=== PATIENT | female | born 1985 | race Caucasian/White ===

== ENCOUNTER 2019-02-28 11:45 | Emergency (ER) | payer SELFPAY ==
[~2019-02-28] VITALS: Ht 165.1 cm; Wt 58.1 kg
--- NOTE | 2019-02-28 12:25 | NUR ---
fever, sore throat x 5 days, took teraflu 1hr [employer]. Kept comfortable, will continue to monitor accordingly.
[2019-02-28] MEDS ORDERED: predniSONE 20 MG TABLET PO ONE (14:00)
[2019-02-28] MEDS ORDERED: IPRATROPIUM NEB FS 0.5 MG/2.5 ML AMPUL.NEB NEB ONE (14:00)
[2019-02-28] MEDS ORDERED: ALBUTEROL FS 2.5 MG/3 ML VIAL.NEB NEB ONE (14:00)
[2019-02-28] MEDS ORDERED: predniSONE 20 MG TABLET ONE (14:01)
--- NOTE | 2019-02-28 14:05 | NUR ---
RT AT BEDSIDE FOR BREATHING TREATMENT.
--- NOTE | 2019-02-28 14:18 | NUR ---
Patient discharged to home in stable condition. Written and verbal after care instructions given. Patient verbalizes understanding of instruction.
--- NOTE | 2019-02-28 14:19 | NUR ---
STILL WAITING FOR BREATHING TREATMENT TO BE COMPLETED.
[2019-02-28 14:37] VITALS: BP 129/81
--- NOTE | 2019-02-28 14:37 | NUR ---
Patient discharged to home in stable condition. Written and verbal after care instructions given. Patient verbalizes understanding of instruction.
== END 2019-02-28 14:37 | disposition home or self-care (01) ==
LOC: ER 11:50
DX: J06.9 Acute upper respiratory infection, unspecified (principal); R51 Headache
CPT/HCPCS: 71045; 94640; 99283; J7512

== ENCOUNTER 2023-02-12 15:40 | Emergency (ER) | payer MEDICAID, OTHER ==
[~2023-02-12] VITALS: Ht 162.6 cm; Wt 59.0 kg
[2023-02-12] MEDS ORDERED: IV NS 0.9% 1,000 ML BAG IV ONE (16:00)
[2023-02-12 16:25] LABS: BASOPHILS # (AUTO) 0.1 K/uL (0.0-0.2); BASOPHILS % (AUTO) 0.6 % (0.0-2.0); EOSINOPHILS % (AUTO) 0.1 % (0.0-6.0); HEMATOCRIT 40 % (33-45); HEMOGLOBIN 13.6 g/dL (11.5-14.8); LYMPHOCYTES # (AUTO) 1.4 K/uL (0.8-4.8); LYMPHOCYTES % (AUTO) 13.9 % (20.0-44.0); MEAN CORPUSCULAR HEMOGLOBIN 30 PG (26.0-33.0); MEAN CORPUSCULAR HGB CONC 34 g/dl (31.0-36.0); MEAN CORPUSCULAR VOLUME 90 fL (82-100); MONOCYTES # (AUTO) 0.6 K/uL (0.1-1.30); MONOCYTES % (AUTO) 5.7 % (2.0-12.0); NEUTROPHILS # (AUTO) 8.3 K/uL (1.8-8.9); NEUTROPHILS % (AUTO) 79.7 % (43.0-81.0); PLATELET COUNT (AUTO) 326 K/uL (150-450); RED BLOOD CELL COUNT(AUTO) 4.49 MIL/uL (4.0-5.2); RED CELL DISTRIBUTION WIDTH 13.5 % (11.5-15.0); WHITE BLOOD COUNT (AUTO) 10.4 K/uL (4.3-11.0)
[2023-02-12] MEDS ORDERED: ONDANSETRON HCL/PF 4 MG/2 ML VIAL IVP ONE (16:30)
[2023-02-12] MEDS ORDERED: FAMOTIDINE/PF INJ 20 MG/2 ML VIAL IV ONE ×2 (16:30→16:33)
[2023-02-12] MEDS ORDERED: MAG HYDROX/AL HYDROX/SIMETH 30 ML UDC PO ONE (16:30)
[2023-02-12] MEDS ORDERED: MAG HYDROX/AL HYDROX/SIMETH 30 ML UDC ONE (16:33)
[2023-02-12] MEDS ORDERED: ONDANSETRON HCL/PF 4 MG/2 ML VIAL ONE (16:33)
[2023-02-12 16:34] LABS: APPEARANCE,URINE CLEAR (CLEAR); BILIRUBIN,URINE NEGATIVE (NEGATIVE); BLOOD, URINE 3+ Ery/uL (NEGATIVE); COLOR,URINE YELLOW (YELLOW); KETONES,URINE 1+ mg/dL (NEGATIVE); LEUKOCYTE ESTERASE ,URINE NEGATIVE (NEGATIVE); NITRITE, URINE NEGATIVE (NEGATIVE); PROTEIN,URINE NEGATIVE (NEGATIVE); UGLUCOSE NEGATIVE (NEGATIVE); UROBILINOGEN,URINE 0.2 EU/dL (0.2)
[2023-02-12 16:37] LABS: PREGNANCY TEST URINE QUAL NEGATIVE (NEGATIVE)
[2023-02-12 16:37] LABS: CALCIUM, SERUM 9.4 mg/dL (8.5-10.1); CREATININE 0.8 mg/dL (0.6-1.3); POTASSIUM 3.5 mmol/L (3.5-5.1)
[2023-02-12 16:49] LABS: ALBUMIN 4.7 g/dL (3.4-5.0); BILIRUBIN,DIRECT 0.1 mg/dL (0.0-0.2); BILIRUBIN,TOTAL 0.4 mg/dL (0.2-1.0); TOTAL PROTEIN, SERUM 8.5 g/dL (6.4-8.2)
[2023-02-12] MEDS ORDERED: ACETAMINOPHEN ES 500 MG TABLET ONE (18:56)
[2023-02-12] MEDS ORDERED: ACETAMINOPHEN ES 500 MG TABLET PO ONE (19:00)
[2023-02-12 19:02] LABS: ADD URINE CULTURE NO; BACTERIA,URINE None seen /HPF (None Seen); WBC,URINE NONE SEEN /HPF (0-3)
[2023-02-12 19:51] VITALS: BP 138/75; TEMP 98.2; O2SAT 99
== END 2023-02-12 19:53 | disposition home or self-care (01) ==
LOC: ER 15:45
DX: R10.13 Epigastric pain (principal); R11.2 Nausea with vomiting, unspecified
CPT/HCPCS: 99285; 74176; 96374; 71045; 96361; 96375; 93005; 85025; 80048; 87086; 83690; 80076; 84703; 81001; 36415; 84484; J3490; J2405; J7030